=== PATIENT | female | born 2000 | race Caucasian/White ===

== ENCOUNTER 2019-05-31 19:04 | Emergency (ER) | payer BC ==
--- OUTSIDE RECORDS SUMMARY | 2019-05-31 19:14 | XMS REPORT | Summary of Care ---
:2000 Author Organization [facility] Address [address] [place] [address] Care Team Providers Name Role Phone None, [place] Primary Care Provider Unavailable Reason for Visit Reason Comments Neck Pain Encounter Details Date Type Department Care Team Description 05/08/2019 Office Visit [facility] Kentrell Roa, Cervical strain, initial encounter (Primary Dx); 1 Ami Torres [place] Thoracic myofascial strain, initial encounter [place] [id number] 1 AMI TORRES [phone] [place] [address] Allergies Active Allergy Reactions Severity Noted Date Comments Cefuroxime Rash 03/11/2008 documented as of this encounter (statuses as of 05/08/2019) Medications Medication Sig Dispensed Refills Start Date End Date Status Levonorgestrel-Ethinyl Take 1 Tab by 84 Tab 3 12/19/2018 Active Estrad (LARISSIA) mouth DAILY. 0.1-20 MG-MCG Oral TabIndications: Menorrhagia with regular cycle documented as of this encounter (statuses as of 05/08/2019) Active Problems No known active problemsdocumented as of this encounter (statuses as of 2018) Resolved Problems Problem Noted Date Resolved Date Open wound of face, unspecified site, without mention of 10/31/20052008 complication documented as of this encounter (statuses as of 05/08/2019) Immunizations Name Administration Dates Next Due DTAP Vaccine 10/24/2003, 04/21/2000, 05/05/1999, 03/02/1999, 1998 HIB 01/21/2000, 03/02/1999, 1998 Hepatitis A Vaccine Peds 06/16/2010, 10/08/2008 Hepatitis B Vaccine 08/04/1999, 1998, 1998 Human Papillomavirus 02/08/2011, 08/27/2010, 06/16/2010 Influenza (IM) Preservative Free 07/23/2015 MENINGOCOCCAL CONJUGATE VACCINE 01/16/2016, 06/16/2010 MMR VACCINE 10/24/2003, 10/22/1999 Meningococcal B Vaccine 01/26/2018 Pneumococcal Conjugate Vaccine 04/21/2000, 01/21/2000 Polio - Inactivated Vaccine 10/18/2002, 08/04/1999, 03/02/1999, 1998 TDAP Vaccine 01/26/2018, 06/16/2010 Varicella Vaccine Live 10/08/2008, 10/22/1999 documented as of this encounter Social History Tobacco Use Types Packs/Day Years Used Date Never Smoker Smokeless Tobacco: Never Used Alcohol Use Drinks/Week oz/Week Comments No 0 Standard drinks or equivalent 0.0 Sex Assigned at Date Recorded Not on file Job Start Date Occupation Industry Not on file Not on file Not on file Travel History Travel Start Travel End No recent travel history available. documented as of this encounter Last Filed Vital Signs Not on filedocumented in this encounter Progress Notes Kentrell Roa DC - 05/08/2019 10:45 AM EDT PATIENT: Perri Landeros : 2000 DATE OF SERVICE: 05/08/2019 REFERRING PRACTITIONER: Andre PRIMARY CARE PROVIDER: None, [place] Chief Complaint Patient presents with Neck Pain HISTORY OF PRESENT ILLNESS: Perri Landeros is a 18-y.o. female who presents for a follow-up visit. She reports neck pain and upper back pain. Since last office visit symptoms have been controlled. Response to previous treatment session: tolerated well Overall, the symptoms have been controlled. 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 No current facility-administered medications for this visit. Allergies Allergen Reactions Cefzil [Cefuroxime] Rash PHYSICAL EXAMINATION: There were no vitals filed for this visit. There is no height or weight on file to calculate BMI. Regions of muscle spasm: bilateral cervical paraspinal Regions of trigger points: none Regions of tenderness: Cervical paraspinal musculature , thoracic paraspinal musculature Intersegmental Motion Evaluation Spinal joint dysfunction/chiropractic subluxation Acute: Cervical: R-C6/7, L-C6/7, R-C7/T1, L-C7/T1 Thoracic: R-T1/2, L-T1/2, R-T2/3, L-T2/3 Posture Forward head carriage and rounded shoulder posture noted, and the shoulders are internally rotated. Orthopedics Tests Palpation of the musculature in the cervical spine and sub occipital region was positive for pain and reproduced the patient's complaints neck pain . Cervical compression testing was negative for upper extremity symptoms using compression with combined extension, lateral bending and rotation. Thoracic outlet testing reproduced the patients complaints of tingling, and is likely mediated by tight pectoral musculature . Thoracic spine extension reproduced the patient's complaints of cervical thoracic junction stiffness. IMPRESSION: ICD-9-CM ICD-10-CM 1. Cervical strain, initial encounter 847.0 S16.1XXA 2. Thoracic myofascial strain, initial encounter 847.1 S29.019A Response to care: Exacerbation of chronic condition Plan: History, Exam, Report of Findings, Manipulate areas of inter-segmental dysfunction as noted inthe section titled intersegmental motion evaluation above , instruct in exercises for the purpose of neuromuscular reeducation to improve strength and range of motion. Neck Flexor Exercise: Do: AM/PM, work up to 10 each time. Remember to keep chin tucked, and roll head up as slow as possible, keep chin tucked and unroll neckas slow as possible. Wall Taiwo Do: AM/PM 15 times. Remember to keep elbows and hands on the wall at all times, bring elbows down and in towards your sides as far and as slow as possible, return to the start position. Manipulation: Spinal level(s): Spinal joint dysfunction/chiropractic subluxation Acute: Cervical: R-C6/7, L-C6/7, R-C7/T1, L-C7/T1 Thoracic: R-T1/2, L-T1/2, R-T2/3, L-T2/3 Follow up: Schedule follow-up here in 3 week(s). Author: Kentrell Roa DC, 05/08/2019, 10:55 documented in this encounter Plan of Treatment Date Type Specialty Care Team Description 05/22/2019 Office Visit Neurology Kentrell oRa DC [address] [place] [address] 07/10/2019 [facility] BarbBharatiLorrie Giles, [facility] [address] [address] Health Maintenance Due Date Last Done Comments HIV SCREENING 2013 DEPRESSION SCREENING 01/26/2019 01/26/2018 INFLUENZA VACCINE (#1) 2019 07/23/2015 PNEUMOCOCCAL 0-64 YRS Completed 04/21/2000, 01/21/2000 HPV IMMUNIZATION SERIES Completed 02/08/2011, 08/27/2010, 06/16/2010 MENINGOCOCCAL VACCINE IMM Addressed 01/16/2016, Overridden with the 10/31/2014 intention of not completing (Postponed), the topic 06/16/2010 documented as of this encounter Results Not on filedocumented in this encounter Visit Diagnoses Diagnosis Cervical strain, initial encounter - Primary Thoracic myofascial strain, initial encounter documented in this encounter Insurance Payer Benefit Plan / Subscriber ID Effective Phone Address Type Group Dates AMI MUELLER xxxxxxxxxxxxxxx 2018-Pres Ami [employer] P[employer] ent [employer] [phone] (Work) documented as of this encounter
--- OUTSIDE RECORDS SUMMARY | 2019-05-31 19:14 | XMS REPORT | Summary of Care ---
:2000 Author Organization [facility] Address [address] [address] Care Team Providers Name Role Phone None, [place] Primary Care Provider Unavailable Reason for Visit Reason Comments Neck Pain Encounter Details Date Type Department Care Team Description 05/22/2019 Office Visit [facility] Kentrell Roa, Cervical strain, initial encounter (Primary Dx); 1 Ami Torres [place] Thoracic myofascial strain, initial encounter [place] [address] 1 AMI TORRES [phone] [place] [address] Allergies Active Allergy Reactions Severity Noted Date Comments Cefuroxime Rash 03/11/2008 documented as of this encounter (statuses as of 05/22/2019) Medications Medication Sig Dispensed Refills Start Date End Date Status Levonorgestrel-Ethinyl Take 1 Tab by 84 Tab 3 12/19/2018 Active Estrad (LARISSIA) mouth DAILY. 0.1-20 MG-MCG Oral TabIndications: Menorrhagia with regular cycle documented as of this encounter (statuses as of 05/22/2019) Active Problems No known active problemsdocumented as of this encounter (statuses as of 2018) Resolved Problems Problem Noted Date Resolved Date Open wound of face, unspecified site, without mention of 10/31/20052008 complication documented as of this encounter (statuses as of 05/22/2019) Immunizations Name Administration Dates Next Due DTAP [...] encounter Progress Notes Kentrell Roa DC - 05/22/2019 9:45 AM EDT PATIENT: Perri Landeros : 2000 DATE OF SERVICE: 05/22/2019 REFERRING PRACTITIONER: Andre PRIMARY CARE PROVIDER: None, [place] Chief Complaint Patient presents with Neck Pain HISTORY OF PRESENT ILLNESS: Perri Landeros is a 18-y.o. female who presents for a follow-up visit. She reports neck pain, upper back pain and bilateral hand tingling. Since last office visit symptoms have been gradually improving. Response to previous treatment session: tolerated well Overall, the symptoms have been gradually improving. Additional comments: Has noticed reduction in frequency of hand tingling, unless swim practice is overly hard Estimated percentage improved: 20% Analog Pain Scale result: 2-10/01 NDI score: Oswestry score: Home exercise fulfillment: [...] BMI. Regions of muscle spasm: bilateral cervical paraspinal, bilateral thoracolumbar paraspinal Regions of trigger points: none Regions of tenderness: Cervical paraspinal musculature, thoracic paraspinal musculature Intersegmental Motion Evaluation Spinal [...] initial encounter 847.1 S29.019A Response to care: Progressing as anticipated Plan: History, Exam, Report of Findings, Manipulate areas of inter-segmental dysfunction as noted inthe section titled intersegmental motion evaluation above , instruct in exercises for the purpose of neuromuscular reeducation to improve strength and range of motion. Supine pectoralis stretches Manipulation: Spinal level(s): Spinal joint dysfunction/chiropractic subluxation Acute: Cervical: R-C6/7, L-C6/7, R-C7/T1, L-C7/T1 Thoracic: R-T1/2, L-T1/2, R-T2/3, L-T2/3 Follow up: Schedule follow-up here in 2 week(s). Author: Kentrell Roa DC, 05/22/2019, 09:43 documented in this encounter Plan of Treatment Date Type Specialty Care Team Description 06/05/2019 Office Visit Neurology Kentrell Roa DC [address] [address] [phone] 07/10/2019 [facility] Dental Lorrie De Guzman [facility] [address] [address] [phone] Health Maintenance Due Date Last Done Comments [...] Effective Phone Address Type Group Dates AMI ANGLIN xxxxxxxxxxxxxxx 2018-Pres Ami [employer] P[employer] ent [employer] [phone] (Work) documented as of this encounter
--- OUTSIDE RECORDS SUMMARY | 2019-05-31 19:14 | XMS REPORT | Continuity of Care Document ---
:2000 External Reference #:[id number] Author Name Argentina Roche FNP (transmitted by agent of provider Geena Moore) Address [address] [place] [id number] Problems Description No Information Available Social History Type Date Description Comments Sex Unknown Tobacco Use Start: Unknown Never Smoked Cigarettes ETOH Use Denies alcohol use Tobacco Use Start: Unknown Patient denies history of smoking Smoking Status Reviewed: 05/09/19 Patient denies history of smoking Allergies, Adverse Reactions, Alerts Active Allergies Reaction Severity Comments Date Cefzil 05/09/2019 Medications Active Medications SIG Qnty Indications Ordering Provider Date Bactrim DS take one tablet 10tabs L03.316 Melchor, 05/09/2019 800-160mg daily x 5 days QUOC Simpson Tablets Immunizations Description No Information Available Vital Signs Date Vital Result Comment 05/09/2019 12:14pm BP Systolic 100 mmHg BP Diastolic 60 mmHg Body Temperature 98.7 F Heart Rate 60 /min Respiratory Rate 20 /min Weight 139.00 lb O2 % BldC Oximetry 97 % Pain Level 5 Results Description No Information Available Procedures Description No Information Available Medical Devices Description No Information Available Encounters Type Date Location Provider Dx Diagnosis Office Visit 05/09/2019 Walk In Clinic Shivam Roche03.316 Cellulitis of 12:00p QUOC Simpson umbilicus Assessments Date Code Description Provider 05/09/2019 L03.316 Cellulitis of umbilicus Argentina Roche FNP Plan of Treatment 05/09/2019 - Argentina Roche FNPL03.316 Cellulitis of umbilicusNew Medication:Bactrim DS 800-160 mg - take one tablet daily x 5 daysComments:Use bactrim as directed, apply neosporin to site, if this does not improve you may need to remove the piercing. Please follow up with the [facility] on [place] [place] if this worsens or does not improve. Functional Status Description No Information Available Mental Status Description No Information Available Referrals Description No Information Available
[2019-05-31 19:47] VITALS: BP 121/70
--- NOTE | 2019-05-31 21:09 | UC ---
Complaint Female HPI - HPI Summary HPI Summary: 18 y/o female presents to the urgent care requesting screening for STD's and prophylactic treatment for chlamydia since she was just told that her partner was Dx w/ chlamydia. she had unprotected sexual intercourse w/ him about 1 month ago. Pt denies any urinary symptoms, vaginal discharge, pelvic pain, abdominal pain, lower back pain, flank pain, SOB, chest pain, N/V/D or Hx of STD 's. LMP: 05/20/2019 w/ regular menstrual cycles. Pt declines HIV testing. Pt is allergic to Cefzil PO. - History Of Current Complaint Chief Complaint: UCGeneralIllness Stated Complaint: PERSONAL Time Seen by Provider: 05/31/19 20:52 Hx Obtained From: Patient Hx Last Menstrual Period: 05/20/2019 ?: No Onset/Duration: Other - exposure to chlamydia s/p unprotected sexual intercourse. Timing: Lasting Weeks - 1 month ago Severity Initially: Mild Severity Currently: None Pain Intensity: 0 Pain Scale Used: 0-10 Numeric Character: Not Applicable Aggravating Factor(s): Nothing Alleviating Factor(s): Nothing Associated Signs And Symptoms: Positive: Negative. Negative: Fever, Back Pain, Vaginal Bleeding/Discharge, Vaginal Discharge, Genital Swelling, Genital Blisters - Risk Factors Ectopic Risk Factor: Negative Ovarian Torsion Risk Factor: Negative - Allergies/Home Medications Allergies/Adverse Reactions: Allergies Allergy/AdvReac Type Severity Reaction Status Date / Time cefprozil [From Cefzil] Allergy Rash Verified 05/31/19 19:42 Home Medications: Home Medications Control Pill 1 tab PO DAILY 05/31/19 [History Confirmed 05/31/19] PMH/Surg Hx/FS Hx/Imm Hx Previously Healthy: Yes - Pt denies PMHX - Surgical History Surgical History: Yes Surgery Procedure, Year, and Place: tonsillectomy - Family History Known Family History: Positive: None - Pt denies FMHX - Social History Occupation: Student Lives: With Family Alcohol Use: Occasionally Substance Use Type: None Smoking Status (MU): Never Smoked Tobacco - Immunization History Vaccination Up to Date: Yes Review of Systems All Other Systems Reviewed And Are Negative: Yes Constitutional: Positive: Negative Skin: Positive: Negative Eyes: Positive: Negative ENT: Positive: Negative Respiratory: Positive: Negative Cardiovascular: Positive: Negative Gastrointestinal: Positive: Negative Genitourinary: Positive: Negative Motor: Positive: Negative Neurovascular: Positive: Negative Musculoskeletal: Positive: Negative Neurological: Positive: Negative Psychological: Positive: Negative Is Patient Immunocompromised?: No Physical Exam - Summary Physical Exam Summary: VITAL SIGNS: Reviewed. GENERAL: Patient is a well developed and nourished female who is sitting comfortable in the examining table. Patient is not in any acute respiratory distress. HEAD AND FACE: No signs of trauma. No ecchymosis, hematomas or skull depressions. No sinus tenderness. EYES: PERRLA, EOMI x 2, No injected conjunctiva, clear watery eyes, no nystagmus. No photophobia. EARS: Hearing grossly intact. Ear canals and tympanic membranes are within normal limits. MOUTH: pharynx with no erythema, no exudates,no palatal petechiae. no B/L tonsillar enlargement Uvula in midline. NECK: Supple, trachea is midline, no lymphadenopathy, no JVD, no carotid bruit, no c-spine tenderness, neck with full ROM. CHEST: Symmetric, no tenderness at palpation LUNGS: Clear to auscultation bilaterally. No wheezing or crackles. CVS: Regular rate and rhythm, S1 and S2 present, no murmurs or gallops appreciated. ABDOMEN: Soft, non-tender. No signs of distention. No rebound no guarding, and no masses palpated. Bowel sounds are normal. BACK:no scoliosis or lesions, non tender to palpation, No B/L CVA tenderness EXTREMITIES: FROM in all major joints, no edema, no cyanosis or clubbing. NEURO: Alert and oriented x 3. No acute neurological deficits. Speech is normal and follows commands. SKIN: Dry and warm Triage Information Reviewed: Yes Vital Signs: Initial Vital Signs Temp 98.6 F 05/31/19 19:43 Pulse 73 05/31/19 19:43 Resp 14 05/31/19 19:43 BP 121/70 05/31/19 19:43 Pulse Ox 100 05/31/19 19:43 Complaint Female Dx - Course Course Of Treatment: 18 y/o female presents to the urgent care requesting screening for STD's and prophylactic treatment for chlamydia since she was just told that her partner was Dx w/ chlamydia. she had unprotected sexual intercourse w/ him about 1 month ago. Pt denies any urinary symptoms, vaginal discharge, pelvic pain, abdominal pain, lower back pain, flank pain, SOB, chest pain, N/V/D or Hx of STD 's. LMP: 05/20/2019 w/ regular menstrual cycles. Pt declines HIV testing. Pt is allergic to Cefzil PO. Hx obtained. PE: WNL. UA: +leukoesteraces and ketones. Urine culture sent ot lab to r/o any abnormality. test: negative. Pt is allergic to cefzil PO. Pt unable to take Rocephin IM inj. Pt given azithromycin PO for prophylactic treatment for chlamydia. If Gonorrhea returns positive Pt can be Tx w/ Gentamicin 240mg IN once or Gemifloxacin 320mg PO once and another 1 g of Azytromycin PO. Pt declined Pelvic exam. Urine sent ot lab to r/o GC/Chla and T.Vaginalis and urine culture. Pt will be notified for any abnormality for further management. Pt educated on STD's and protection. Advised she will be notified if any abnormal results from lab. Pt understood and agreed with plan of care. - Differential Dx/Diagnosis Differential Diagnosis/HQI/PQRI: Cervicitis, Pelvic Inflammatory Disease, , Renal Colic, Sexually Transmitted Disease, Urinary Tract Infection Provider Diagnosis: Exposure to chlamydia, Screening for STD (sexually transmitted disease) Discharge ED - Sign-Out/Discharge Documenting (check all that apply): Patient Departure - d/c home All imaging exams completed and their final reports reviewed: No Studies - Discharge Plan Condition: Stable Disposition: HOME Patient Education Materials: Chlamydia (ED), Sexually Transmitted Diseases (ED) Referrals: [facility] [Outside] - 3 Days Additional Instructions: 1- You were given Azithromycin PO for prophylactic treatment for Chlamydia. 2- Specimen were sent to lab, if anything abnormal you will receive a call from us for further treatment. 3-If not improvement of symptoms please return to the urgent care or f/u with your [employer]IAN for further treatment. Your partner needs to be treated if it samples are positive. Please avoid sexual intercourse until completely resolved and F/U w/ your [employer]IAN in 2-3 weeks for complete resolution 4- Urine culture will be sent to lab to r/o any abnormality for further management - Billing Disposition and Condition Condition: STABLE Disposition: Home
[2019-05-31] MEDS ORDERED: Azithromycin TAB* 250 MG PO ONE (21:29)
[2019-06-04 12:59] LABS: Chlamydia trachomatis NAA Negative (Negative); Neisseria gonorrhoeae (GC) NAA Negative (Negative)
== END 2019-05-31 21:49 | disposition home or self-care (01) ==
LOC: UCCORT 19:04
DX: Z20.2 Contact with and (suspected) exposure to infections with a predominantly sexual mode of transmission (principal); Z88.8 Allergy status to other drugs, medicaments and biological substances
CPT/HCPCS: 81003; 84702; 87086; 87491; 87591; 87661; 99202; A9270-GY; G0463